=== PATIENT | female | born 1995 | race Two or more races ===

== ENCOUNTER 2023-11-16 12:00 | Observation (INO) | payer MEDICAID ==
[2023-11-16] MEDS ORDERED: PREN-96 PO (13:06)
[2023-11-16 14:42] LABS: Urine Bacteria None Seen /hpf (None Seen)
[2023-11-16 14:55] LABS: Urine Blood Negative /uL (Negative); Urine Clarity Clear (Clear); Urine Color Yellow (Yellow); Urine Protein, UAD TRACE (Negative); Urine Specific Gravity 1.021 (1.001-1.035); Urine Urobilinogen Normal (Negative); Urine WBC 1 /hpf (0 - 5)
[2023-11-16 14:56] LABS: Basophils # (auto) 0 10 ^3/uL (0-0.2); Basophils % (auto) 0.3 % (0.0-2.0); Eosinophils # (auto) 0.2 10 ^3/uL (0-0.8); Eosinophils % (auto) 2.1 % (0.0-7.0); Hematocrit 38.8 % (36.0-46.0); Hemoglobin 13.3 g/dL (12.2-16.2); Lymphocytes # (auto) 2.8 10 ^3/uL (0.4-5.4); Lymphocytes % (auto) 23.9 % (10.0-50.0); Mean Corpuscular Hemoglobin 31.5 pg (28.0-32.0); Mean Corpuscular Hgb Conc. 34.4 g/dL (32.0-36.0); Mean Corpuscular Volume 91.6 fL (80.0-100.0); Monocytes # (auto) 0.7 10 ^3/uL (0-1.3); Monocytes % (auto) 6.2 % (0.0-12.0); Neutrophils # (auto) 7.8 10 ^3/uL (1.6-8.6); Neutrophils % (auto) 67.5 % (37.0-80.0); Nucleated Red Blood Cells % 0.1 %; Red Blood Cells 4.23 10^6/uL (4.0-5.20); Red Cell Distribution Width 13.7 % (11.8-14.3); White Blood Cell 11.6 10^3/uL (4.4-10.8)
[2023-11-16 15:04] LABS: Creatinine, Urine 99.67 mg/dL (30.0-125.0); Urine Protein/Creatinine Ratio 0.18
[2023-11-16 15:07] LABS: Alanine Aminotransferase 17 U/L (7-40); Albumin 3.9 g/dL (3.2-4.8); Alkaline Phosphatase 130 U/L (46-116); Anion Gap 10 (5-15); Aspartate Aminotransferase 19 U/L (13-40); BUN/Creatinine Ratio 13.9 (10.0-20.0); Blood Urea Nitrogen 5 mg/dL (9-23); Calcium 9.3 mg/dL (8.7-10.4); Carbon Dioxide 20 mmol/L (20-30); Chloride 108 mmol/L (98-107); Glucose 83 mg/dL (74-106); Potassium 3.7 mmol/L (3.5-5.1); Sodium 138 mmol/L (136-145); Uric Acid 4.9 mg/dL (3.1-7.8)
[2023-11-16 15:08] LABS: Bilirubin, Total 0.8 mg/dL (0.2-1.0); Total Protein 6.7 g/dL (5.7-8.2)
[2023-11-16 15:19] LABS: INR 0.9 (0.9-1.15); Partial Thromboplastin Time 26.2 SEC (24.5-34.5); Prothrombin Time 9.6 sec (9.3-11.8)
== END 2023-11-16 15:40 | disposition home or self-care (01) ==
LOC: LDRP 12:00
PROVIDERS: ADMIT Obstetrics & Gynecology; ATTEND Obstetrics & Gynecology
DX: O48.0 Post-term pregnancy (principal); O42.913 Preterm premature rupture of membranes, unspecified as to length of time between rupture and onset of labor, third trimester; Z3A.40 40 weeks gestation of pregnancy; Z79.899 Other long term (current) drug therapy
CPT/HCPCS: 36415; 59025; 76818; 80053; 81001; 81002; 82570; 84156; 84550; 85025; 85610; 85730; 94760; G0378

== ENCOUNTER 2023-11-17 08:15 | Inpatient (IN) | payer MEDICAID ==
[~2023-11-17] VITALS: Ht 157.5 cm; Wt 74.8 kg
[~2023-11-17 08:15] MED LIST: PREN-96 PO
[2023-11-17] MEDS ORDERED: BUTORPHANOL TARTRATE 2 MG/1 ML VIAL IV PRN ×2 (09:00)
[2023-11-17] MEDS ORDERED: LIDOCAINE 2%HCL (LOCAL ANESTH.) INJ 20ML MDV IJ PRN (09:00)
[2023-11-17 10:14] LABS: Basophils # (auto) 0 10 ^3/uL (0-0.2); Basophils % (auto) 0.2 % (0.0-2.0); Eosinophils # (auto) 0.3 10 ^3/uL (0-0.8); Eosinophils % (auto) 1.7 % (0.0-7.0); Hematocrit 40.2 % (36.0-46.0); Hemoglobin 13.7 g/dL (12.2-16.2); Lymphocytes # (auto) 2.8 10 ^3/uL (0.4-5.4); Mean Corpuscular Hemoglobin 31.2 pg (28.0-32.0); Mean Corpuscular Volume 91.6 fL (80.0-100.0); Monocytes # (auto) 0.8 10 ^3/uL (0-1.3); Monocytes % (auto) 5.2 % (0.0-12.0); Neutrophils # (auto) 11.5 10 ^3/uL (1.6-8.6); Neutrophils % (auto) 74.9 % (37.0-80.0); Red Blood Cells 4.39 10^6/uL (4.0-5.20); Red Cell Distribution Width 13.6 % (11.8-14.3); White Blood Cell 15.3 10^3/uL (4.4-10.8)
[2023-11-17] MEDS ORDERED: TERBUTALINE SULFATE 1 MG/ML 1ML VIAL SC PRN (10:30)
[2023-11-17] MEDS: PENICILLIN G POT 5MIL/D5 50ML 50 ML IV ONE (10:32)
[2023-11-17] MEDS: LACTATED RINGER'S 1,000 ML IV SCH (10:32)
[2023-11-17 10:33] LABS: Alanine Aminotransferase 16 U/L (7-40); Alkaline Phosphatase 137 U/L (46-116); Anion Gap 9 (5-15); Aspartate Aminotransferase 13 U/L (13-40); Calcium 9.7 mg/dL (8.7-10.4); Carbon Dioxide 22 mmol/L (20-30); Chloride 108 mmol/L (98-107); Glucose 104 mg/dL (74-106); Potassium 3.8 mmol/L (3.5-5.1); Sodium 139 mmol/L (136-145)
[2023-11-17] MEDS: DERMOPLAST 60ML BOTTLE TOP PRN (10:33)
[2023-11-17] MEDS: PHISODERM TOP SOLN 240ML BTL TOP PRN (10:33)
[2023-11-17] MEDS: WITCH HAZEL-GLYCERIN PAD TOP PRN (10:33)
[2023-11-17 10:34] LABS: Total Protein 6.6 g/dL (5.7-8.2)
[2023-11-17 10:35] LABS: Urine Bacteria FEW /hpf (None Seen); Urine Blood Negative /uL (Negative); Urine Clarity Clear (Clear); Urine Color Light-Yellow (Yellow); Urine Mucus FEW (None Seen); Urine Protein, UAD Negative (Negative); Urine Specific Gravity 1.012 (1.001-1.035); Urine Urobilinogen Normal (Negative); Urine WBC <1 /hpf (0 - 5)
[2023-11-17 10:37] LABS: BUN/Creatinine Ratio 12.2 (10.0-20.0); Blood Urea Nitrogen < 5 mg/dL (9-23)
[2023-11-17 10:39] LABS: INR 0.93 (0.9-1.15); Partial Thromboplastin Time 26.2 SEC (24.5-34.5); Prothrombin Time 9.9 sec (9.3-11.8)
[2023-11-17 11:12] LABS: Amphetamine Screen, Urine Neg (NEGATIVE)
[2023-11-17 11:13] LABS: Barbiturate Scree,Urine Neg (NEGATIVE); Benzodiazephine Screen, Urine Neg (NEGATIVE); Cannabinoid Screen, Urine Neg (NEGATIVE); Cocaine Screen, Urine Neg (NEGATIVE); Opiate Scree,Urine Neg (NEGATIVE); Phencyclidine Screen, Urine Neg (NEGATIVE)
[2023-11-17] MEDS: LACT. RINGERS/OXYTOCIN 20UNITS 1,000 ML IV SCH (11:31)
[2023-11-17] MEDS ORDERED: PENICILLIN G POTASSIUM 2,500,000 UNITS in D5W 5% 50 ML IV SCH (13:15)
[2023-11-17] MEDS ORDERED: METHYLERGONOVINE MALEATE 0.2 MG/ML AMP IM ONE (15:52)
[2023-11-17] MEDS: DIPHENOXYLATE W/ATROPINE 2.5 MG TAB PO STA (17:13)
[2023-11-17] MEDS: CARBOPROST TROMETHAMINE 250 MCG/1ML VIAL IM ONE (17:14)
[2023-11-17] MEDS: miSOPROStol 100 mcg TAB SL STA (17:17)
[2023-11-17] MEDS: METHYLERGONOVINE MALEATE 0.2 MG/ML AMP IM PRN (17:17)
[2023-11-17] MEDS: miSOPROStol 100 mcg TAB PR PRN (17:18)
[2023-11-17] MEDS ORDERED: ONDANSETRON ODT 4 MG TAB PO PRN (17:30)
[2023-11-17] MEDS ORDERED: IBUPROFEN 600 MG TAB PO PRN (17:30)
[2023-11-17] MEDS: ACETAMINOPHEN 325 MG TAB PO PRN (17:42)
[2023-11-17] MEDS: LACT. RINGERS/OXYTOCIN 20UNITS 500 ML IV ONE ×2 (17:45)
[2023-11-17 19:00] VITALS: BP 110/68; PULSE 77; RESP 18; TEMP 98.5; O2SAT 99
[2023-11-17] MEDS ORDERED: miSOPROStol 100 mcg TAB PO ONE (20:01)
[2023-11-17 23:00] VITALS: BP 116/77; PULSE 72; RESP 16; TEMP 98.2; O2SAT 98
[2023-11-18 02:46] VITALS: BP 106/62; PULSE 84; RESP 18; TEMP 98.6; O2SAT 96
[2023-11-18 07:30] VITALS: BP 110/69; PULSE 85; RESP 18; TEMP 99; O2SAT 98
[2023-11-18 11:00] VITALS: BP 112/76; PULSE 81; RESP 18; TEMP 98.6; O2SAT 96
[2023-11-23 12:46] LABS: RPR Non Reactive (Non Reactive)
== END 2023-11-18 13:20 | disposition home or self-care (01) | DRG 560 ==
LOC: OBSVTOIN 08:15 → LDRP 08:15
PROVIDERS: ADMIT Obstetrics & Gynecology; ATTEND Obstetrics & Gynecology
PROC: 10E0XZZ Delivery of Products of Conception, External Approach (ICD-10-PCS; principal; 2023-11-17)
PROC: 0HQ9XZZ Repair Perineum Skin, External Approach (ICD-10-PCS; 2023-11-17)
DX: O48.0 Post-term pregnancy (principal); Z37.0 Single live birth; O70.0 First degree perineal laceration during delivery; Z3A.40 40 weeks gestation of pregnancy
CPT/HCPCS: 36415; 59025; 59409; 80053; 80307; 81001; 81002; 85025; 85610; 85730; 86592; 86703; 86803; 86850; 86900; 86901; 94760; 96360; 96361; 96365; 96366; G0378; J2540; J2590; J7060